=== PATIENT | male | born 1955 | race Caucasian/White ===

== ENCOUNTER 2018-08-18 12:08 | Emergency (ER) | payer OTHER ==
[~2018-08-18] VITALS: Ht 190.5 cm; Wt 81.7 kg
[2018-08-18 13:24] LABS: ABSOLUTE NEUTROPHILS 8.4 thou/uL (1.4-8.2); BASOPHILS 0.5 % (0.0-2.0); EOSINOPHILS 0.1 % (0.0-3.0); HEMATOCRIT 39.3 % (42.0-52.0); HEMOGLOBIN 13.4 gm/dL (14.0-18.0); LYMPHOCYTES 7.5 % (24.0-44.0); MCV 85.4 fL (80.0-100.0); MONOCYTES 7.1 % (1.0-8.0); PLATELET COUNT 227 thou/uL (150-400); POLYS 84.8 % (36.0-66.0); RDW 15.1 % (10.5-14.5); WBC 9.9 thou/uL (4.0-11.0)
[2018-08-18 14:47] LABS: ANION GAP 4 mmol/L (7-16); BUN 36 mg/dL (7-18); CALCIUM 9.7 mg/dL (8.5-10.1); CHLORIDE 99 mmol/L (98-107); CO2 29 mmol/L (21-32); GLUCOSE 231 mg/dL (74-106); POTASSIUM 3.9 mmol/L (3.5-5.1); SODIUM 132 mmol/L (136-145)
[2018-08-18 14:51] LABS: ALBUMIN 3.3 g/dL (3.4-5.0); SGOT 26 U/L (15-37); SGPT 50 U/L (30-65); TOTAL BILIRUBIN 1.1 mg/dL (<0.1-1.0); TOTAL PROTEIN 6.9 g/dL (6.4-8.2); TROPONIN-I <0.06 ng/mL (<0.06)
[2018-08-18] MEDS ORDERED: MECLIZINE HCL25 MG PO (14:57)
[2018-08-18 15:00] VITALS: BP 129/59
[2018-08-18] MEDS ORDERED: ONDANSETRON HCL4 M2 PO (15:02)
--- NOTE | 2018-08-19 08:43 | EKG ---
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: YONAS : 1955 Requested By: Ella Garvey Order Number: [id number] MD: Ishmael Crum Measurements Intervals Dickens Rate: 55 P: 53 MN: 220 QRS: 40 QRSD: 84 T: 49 QT: 436 QTc: 417 Interpretive Statements Sinus rhythm Prolonged MN interval Baseline wander in lead(s) V1 No previous ECG available for comparison Electronically Signed On 08-19-2018 8:43:11 CDT by Ishmael Crum [email or web address] ��������������������������������������������� <ELECTRONICALLY SIGNED> ���������������������������������������� By: Ishmael Crum MD ��������������������������������������������� 08/19/18 [id number] Ishmael Crum MD /CINDY
== END 2018-08-18 15:06 | disposition home or self-care (01) ==
LOC: ER 12:08
PROVIDERS: Physician Assistant
DX: H61.21 Impacted cerumen, right ear (principal); H66.91 Otitis media, unspecified, right ear; R42 Dizziness and giddiness; R11.2 Nausea with vomiting, unspecified